=== PATIENT | male | born 1985 | race Two or more races ===

== ENCOUNTER 2019-06-25 01:22 | Emergency (ER) | payer MEDICARE, OTHER ==
[~2019-06-25] VITALS: Ht 182.9 cm; Wt 102.5 kg
[2019-06-25] MEDS ORDERED: LORAZEPAM 1 MG TABLET ONE (01:29)
[2019-06-25] MEDS ORDERED: LORAZEPAM 1 MG TABLET PO ONE (01:30)
--- NOTE | 2019-06-25 01:35 | NUR ---
PT AAOX4. AMBULATORY WITH STEADY GAIT. BIBRA C/O HIS MEDS BEING STOLEN AT [facility], [place]. PT ANXIOUS UPON ASSESSMENT. MD AT BEDSIDE FOR EVAL. NO ACUTE DISTRESS NOTED. RR EVEN AND UNLABORED. PLACED ON MONITOR AND PULSE OX. WILL CONTINUE TO MONITOR.
--- NOTE | 2019-06-25 01:40 | NUR ---
PT AMBULATED TO THE RESTROOM WITH STEADY GAIT. DENIES PAIN. VSS.
--- NOTE | 2019-06-25 02:00 | NUR ---
Patient discharged to home in stable condition. Written and verbal after care instructions given. Patient verbalizes understanding of instruction and RX. Pt ambualted with steady gait. Pt ambualted with steady gait. vss.
[2019-06-25 02:02] VITALS: BP 118/78
== END 2019-06-25 02:09 | disposition home or self-care (01) ==
LOC: ER 01:23
DX: F41.9 Anxiety disorder, unspecified (principal); Z88.0 Allergy status to penicillin; Z88.8 Allergy status to other drugs, medicaments and biological substances; Z60.2 Problems related to living alone